=== PATIENT | female | born 1950 | race Caucasian/White ===

== ENCOUNTER → 2017-03-14 | Outpatient (CLI) | payer OTHER ==
[~2017-03-14] MED LIST: ACTEMRA162 MG/0.9 SQ; ADVAIR 500-501 EACH INH; ALBUTEROL2.5 MG/31 INH; ALLOPURINOL; ALLOPURINOL 30300 M1 PO; AVAPRO300 MG PO; B12INJ IM; B12INJ SUBQ; BAYER ADVANCED500 MG PO; BISACODYL SUPP10 MG RECTAL; CALCITRATE200 MG PO; CELEXA; CELEXA 20 MG TA20 MG PO; CELEXA40 MG PO; CLONIDINE HCL0.2 M2 PO; COZAAR100 MG PO; CYMBALTA60 MG PO; DIAZEPAM 5 MG5 M1 PO; FISH OIL 1,2001 EAC4 PO; FOLIC ACID1 MG PO; GILPIZIDE; GLIPIZIDE 10 MG10 MG PO; GLUCOTROL5 MG PO; HYDRALAZINE 5050 MG PO; HYDROCHLOROTH12.5 MG PO; HYDROCHLOROTHIA25 M1 PO; HYDROCODON-ACE1 EA11; KAPVAY0.1 MG PO; LOPRESSOR25 PO; LOSARTAN-HCTZ1 EAC2 PO; MAGNESIUM500 MG PO; METHOTREXATE 22.5 MG PO; NEURONTIN 300300 M1 PO; NEXIUM40 MG PO; NORCO 5-325 TA1 EACH PO; OXYCONTIN10 M1 PO; PERCOCET 5-3251 EACH PO; PRAVACHOL40 MG PO; PROAIR HFA8.5 GM INH; PROBIOTIC1 EAC1 PO; PROTONIX40 M1 PO; QVAR HFA 880 MCG/UN1 INH; SINGULAIR 10 MG10 M1 PO; SOMA250 MG PO; SYSTANE ULTRA1 EACH OPHTHALMIC; TOPROL XL50 MG PO; VITAMIN B-12100 MC1 SUBQ; VITAMIN D32000 UNIT PO; VITAMIN D35000 UNIT PO; VITAMIN E400 UNIT PO; WELLBUTRIN SR150 MG PO; XARELTO10 M1 PO
== END ==
LOC: RAD 01:47
DX: Z12.31 Encounter for screening mammogram for malignant neoplasm of breast (principal)

== ENCOUNTER → 2017-09-24 | Outpatient (CLI) | payer OTHER | LOC: SLEEPLAB 16:23 | DX: G47.33 Obstructive sleep apnea (adult) (pediatric) (principal) ==

== ENCOUNTER → 2017-10-12 | Outpatient (CLI) | payer OTHER ==
[~2017-10-12] MED LIST changes: +CO Q-10100 MG PO; +CRESTOR10 MG PO; +LYRICA 75 MG CA75 MG PO; +MELATONIN3 MG PO; +MIRALAX17 GM PO; +MS CONTIN15 MG PO; +PERCOCET PO; +PIOGLITAZONE15 MG; +TRI-BUFFERED A325 M1 PO
== END ==
LOC: SLEEPLAB 16:33
DX: G47.33 Obstructive sleep apnea (adult) (pediatric) (principal)

== ENCOUNTER → 2017-11-16 | Outpatient (CLI) | payer OTHER | LOC: RAD 12:56 | DX: J44.9 Chronic obstructive pulmonary disease, unspecified (principal); D86.9 Sarcoidosis, unspecified ==

== ENCOUNTER 2017-12-05 05:15 | Inpatient (IN) | payer OTHER ==
[2017-11-29 12:50] LABS: URINE BILIRUBIN NEGATIVE (Negative); URINE BLOOD NEGATIVE (Negative); URINE CLARITY CLEAR; URINE COLOR YELLOW; URINE GLUCOSE-RANDOM* NEGATIVE (Negative); URINE KETONES NEGATIVE (Negative); URINE LEUKOCYTES-REFLEX NEGATIVE (Negative); URINE NITRITE-REFLEX NEGATIVE (Negative); URINE PROTEIN (DIPSTICK) NEGATIVE (Negative); URINE SPECIFIC GRAVITY >= 1.030 (1.005-1.035); URINE UROBILINOGEN 0.2 E.U./dl (0.2-1.0)
[2017-11-29 12:51] LABS: HEMATOCRIT 42.6 % (37.0-47.0); HEMOGLOBIN 14.2 gm/dL (12.0-15.0); MCH 31.3 pg (26.0-34.0); MCHC 33.4 g/dL (28.0-37.0); MCV 93.7 fL (80.0-100.0); RBC 4.55 mil/uL (4.20-5.00); RDW 13.7 % (10.5-14.5); WBC 6.9 thou/uL (4.0-11.0)
[2017-11-29 12:57] LABS: CALCIUM 9.4 mg/dL (8.5-10.1); POTASSIUM 3.8 mmol/L (3.5-5.1)
[~2017-12-05] VITALS: Ht 162.6 cm; Wt 111.1 kg
[2017-12-05] VITALS (9 sets, daily range): BP systolic 124–159; BP diastolic 32–71
--- NOTE | ~2017-12-05 | O ---
[facility] [place] [address] OPERATIVE REPORT Name: ADELINA SAWYER Room #: 407-P [facility] IN M.R.#: [id number] Admission: 12/05/17 Attend Phys: Lonny Amaya MD Discharge: 12/06/17 Date of : 50 Report #: [id number] THIS REPORT FOR: //name// CC: Lonny Tyson DATE OF SERVICE: 12/05/2017 PREOPERATIVE DIAGNOSES: 1. Right knee osteoarthritis. 2. Morbid obesity with body mass index of 45. POSTOPERATIVE DIAGNOSES: 1. Right knee osteoarthritis. 2. Morbid obesity with body mass index of 45. PROCEDURE: Right total knee arthroplasty. SURGEON: Lonny Amaya MD ELECTRICAL INSTRUMENT TECHNICIAN: Claire Sibley PA-C. INDICATION FOR ELECTRICAL INSTRUMENT TECHNICIAN: Throughout the case, extensive retraction and manipulation of the knee was required, this was afforded to me by my credit assistant. ANESTHESIA: Spinal with an adductor canal block. IMPLANTS: [employer] size 5 Legion cobalt chrome posterior stabilized femur, size 3 tibia, size 32 patella and a size 11 polyethylene. TOURNIQUET TIME: 57 minutes. ESTIMATED BLOOD LOSS: 50 mL COMPLICATIONS: None. SPECIMENS: None. CONDITION UPON LEAVING THE OPERATING ROOM: Stable. INDICATION FOR PROCEDURE: The patient is a 67-year-old female with severe right knee osteoarthritis. She had failed conservative treatment for this and after discussion with her, she elected for right total knee arthroplasty. DESCRIPTION OF PROCEDURE: Risks, benefits, alternatives, complications were discussed in detail with the patient including, but not limited to risk of [facility] [address] [place] [address] OPERATIVE REPORT Name: ADELINA SAWYER Room #: 407-P DIS IN M.R.#: [id number] Admission: 12/05/17 Attend Phys: Lonny Amaya MD Discharge: 12/06/17 Date of : 50 Report #: [id number] anesthesia, risk of damage to nerves, arteries, blood vessels, risk for infection, bleeding, risk for continued knee pain and need for reoperation. Informed consent was obtained from the patient. Right knee was appropriately marked in the preoperative holding area. IV Ancef was given for preoperative antibiotics. Adductor canal block was placed by anesthesia. She was brought to the operating room and placed on the operating room table. Spinal anesthesia was induced without complication. She was then laid supine on the operating room table in the right. Tourniquet was placed on the right thigh. Right upper extremity was prepped and draped in normal sterile fashion. Timeout was performed properly identifying the patient and procedure as well as the instrumentation and implants. All in the operating room were in agreement. Right lower extremity was exsanguinated, tourniquet was inflated. Tourniquet time was 57 minutes. Standard midline approach to the knee was made with 10 blade through the skin and taken down sharply to the fascia and deep flaps were developed medially and laterally. Fresh 10 blade was used to make a medial parapatellar arthrotomy and the knee inspected. There was extensive tricompartmental osteoarthritic change. Anterior horns of the meniscus were removed sharply. Patella was everted, knee was flexed. Deep retractors were placed. ACL and PCL were removed sharply. Drill was used to gain access to the canal of the femur and distal femoral cutting block pinned in place. Distal femoral cut made. The femur was sized, found to be a size 5. The size 5, 4-in-1 cutting block was placed. Anterior, posterior chamfer cuts were made. Knee was then hyperflexed and tibia subluxed anteriorly. Remainder of the menisci removed with Bovie cautery and tibial resection was based off the lateral plateau using intramedullary alignment. After this, posterior osteophytes were removed from the femur and flexion and extension gap were checked and found to be equal in flexion and extension both medially and laterally. Tibia was sized, found to be a size 3. A size 3 tibial trial was placed and size 5 femoral trial was placed and the box cut was made through the trial. A post for the femoral trial was placed and the knee was then trialed with a size 9 polyethylene. It was then trialed up to a size 11 and found to have a best fit with a size 11, 9 mm was taken off the posterior surface of the patella, and size 32 patellar trial was placed. Knee was taken through range of motion, found to be stable, found to have good balance in flexion and extension both medially and laterally. Bone ends were thoroughly irrigated with normal saline and a final size 3 tibia, size 5 Legion cobalt chrome posterior stabilized femur and a size 32 patella were cemented in place using standard cementation techniques. After the cement cured, tourniquet was deflated. Hemostasis was obtained with Bovie cautery. A periarticular injection consisting of morphine, ropivacaine, epinephrine and Toradol was placed around the knee joint. Final size 11 polyethylene was placed. A gram of vancomycin was placed deep in the knee joint. The fascia was closed with 0 Vicryl; skin was closed with 2-0 Vicryl, 3-0 Monocryl and a OBDULIO dressing was applied. The [address] [address] OPERATIVE REPORT Name: SILVERIO,ADELINA Room #: 407-P DIS IN [place].#: [id number] Admission: 12/05/17 Attend Phys: Lonny Amaya MD Discharge: 12/06/17 Date of : 50 Report #: [id number] patient tolerated this procedure well and went to the recovery room under the care of anesthesia postoperatively. <ELECTRONICALLY SIGNED> By: Lonny Amaya MD 12/12/17 [id number] Lonny Amaya MD /nt
[~2017-12-05 05:15] MED LIST changes: -MS CONTIN15 MG PO; -PERCOCET PO; -TRI-BUFFERED A325 M1 PO
[2017-12-06] VITALS: BP 132/68
[2017-12-06 04:00] VITALS: BP 158/80
[2017-12-06 05:44] LABS: HEMATOCRIT 35.8 % (37.0-47.0); HEMOGLOBIN 11.6 gm/dL (12.0-15.0); MCH 30.8 pg (26.0-34.0); MCHC 32.5 g/dL (28.0-37.0); MCV 94.9 fL (80.0-100.0); RBC 3.77 mil/uL (4.20-5.00); RDW 14.4 % (10.5-14.5); WBC 13.9 thou/uL (4.0-11.0)
[2017-12-06 09:05] VITALS: BP 144/69
[2017-12-06] MEDS ORDERED: MS CONTIN15 MG PO (11:20)
[2017-12-06] MEDS ORDERED: TRI-BUFFERED A325 M1 PO (11:20)
[2017-12-06] MEDS ORDERED: PERCOCET PO (11:20)
[2017-12-06 13:55] VITALS: BP 144/69
[2017-12-06 13:59] VITALS: BP 144/69
[2017-12-06 15:27] VITALS: BP 144/69
== END 2017-12-06 14:50 | disposition home health service (06) | DRG 470 ==
LOC: TBA 05:15 → 4N 05:15 → PRE 05:59 → 4N 16:19 → ENTRNSPT 12-06 14:26 → 4N 12-06 14:50
PROVIDERS: Orthopaedic Surgery
PROC: 0SRC0JZ Replacement of Right Knee Joint with Synthetic Substitute, Open Approach (ICD-10-PCS; principal; 2017-12-05)
DX: M17.11 Unilateral primary osteoarthritis, right knee (principal); Z68.42 Body mass index [BMI] 45.0-49.9, adult; E66.01 Morbid (severe) obesity due to excess calories; I10 Essential (primary) hypertension; E78.5 Hyperlipidemia, unspecified; M06.9 Rheumatoid arthritis, unspecified; F32.9 Major depressive disorder, single episode, unspecified; E11.9 Type 2 diabetes mellitus without complications
CPT/HCPCS: 10790; 50010; 50101; 50415; 50954; 51130; 51225; 51771; 53000; 53078; 53364; 54118; 56527; 56528; 57095; 62110; 62850; 70005

== ENCOUNTER 2017-12-13 10:34 | Emergency (ER) | payer OTHER ==
[~2017-12-13] VITALS: Ht 157.5 cm; Wt 110.7 kg
[~2017-12-13 10:34] MED LIST changes: +MS CONTIN15 MG PO; +PERCOCET PO; +TRI-BUFFERED A325 M1 PO
[2017-12-13 14:35] VITALS: BP 146/64
== END 2017-12-13 14:37 | disposition home or self-care (01) ==
LOC: ER 10:34
DX: K59.00 Constipation, unspecified (principal); R10.30 Lower abdominal pain, unspecified; F11.90 Opioid use, unspecified, uncomplicated; I10 Essential (primary) hypertension; E11.9 Type 2 diabetes mellitus without complications; J45.909 Unspecified asthma, uncomplicated; E78.5 Hyperlipidemia, unspecified; K21.9 Gastro-esophageal reflux disease without esophagitis; M19.90 Unspecified osteoarthritis, unspecified site; Z85.118 Personal history of other malignant neoplasm of bronchus and lung; Z91.040 Latex allergy status

== ENCOUNTER → 2018-03-05 | Outpatient (CLI) | payer OTHER | LOC: CAT 11:14 | DX: D86.9 Sarcoidosis, unspecified (principal); E04.1 Nontoxic single thyroid nodule; I25.10 Atherosclerotic heart disease of native coronary artery without angina pectoris; I70.8 Atherosclerosis of other arteries; D71 Functional disorders of polymorphonuclear neutrophils; R91.8 Other nonspecific abnormal finding of lung field ==

== ENCOUNTER → 2018-03-19 | Outpatient (CLI) | payer OTHER | LOC: RAD 02:02 | DX: Z12.31 Encounter for screening mammogram for malignant neoplasm of breast (principal) ==

== ENCOUNTER → 2019-08-26 | Outpatient (CLI) | payer OTHER | LOC: RAD 08-21 02:59 | DX: Z12.31 Encounter for screening mammogram for malignant neoplasm of breast (principal) ==

== ENCOUNTER → 2020-07-21 | Outpatient (CLI) | payer OTHER | LOC: NUC 13:51 | PROVIDERS: ATTEND Neuromusculoskeletal Medicine & OMM | DX: M85.88 Other specified disorders of bone density and structure, other site (principal); M81.0 Age-related osteoporosis without current pathological fracture ==